=== PATIENT | male | born 1965 ===

== ENCOUNTER 2017-05-14 14:39 | Outpatient (CLI) | payer OTHER | END 2017-05-14 14:44 | disposition home or self-care (01) | LOC: RAD 14:39 | DX: M25.511 Pain in right shoulder (principal); M25.512 Pain in left shoulder; M25.561 Pain in right knee; M25.562 Pain in left knee; M25.571 Pain in right ankle and joints of right foot; M25.572 Pain in left ankle and joints of left foot ==

== ENCOUNTER 2017-05-16 08:39 | Outpatient (CLI) | payer OTHER | END 2017-05-16 08:41 | disposition home or self-care (01) | LOC: SONOGRAMA 08:39 | DX: M25.512 Pain in left shoulder (principal); M25.511 Pain in right shoulder ==